=== PATIENT | female | born 1980 | race Caucasian/White ===

== ENCOUNTER 2019-09-29 13:42 | Inpatient (IN) ==
[2019-09-29] MEDS ORDERED: Naloxone 0.4 MG/ML INJ IVP PRN (17:26)
[2019-09-29] MEDS ORDERED: Ondansetron 4 MG/2 ML VIAL IVP PRN (17:26)
[2019-09-29] MEDS ORDERED: Azithromycin 500 MG in 0.9 % Sodium Chloride 250 ML IVPB ONE (17:26)
[2019-09-29] MEDS ORDERED: *HR* Nalbuphine 10 MG/ML AMPUL IVP PRN (17:26)
[2019-09-29] MEDS ORDERED: Famotidine 20 MG/2 ML VIAL IVP PRN (17:26)
[2019-09-29 18:40] LABS: Amphetamine Screen,Urine Negative ng/mL (Cutoff=1000); Barbiturate Screen,Urine Negative ng/mL (Cutoff=200); Benzodiazepines Screen,Urine Negative ng/mL (Cutoff=200); Cannabinoid Screen,Urine Negative ng/mL (Cutoff = 50); Cocaine Screen,Urine Negative ng/mL (Cutoff= 300); Creatinine,Urine 246 mg/dL; Opiate Screen,Urine Negative ng/mL (Cutoff=300); Phencyclidine Screen,Urine Negative ng/mL (Cutoff=25); Protein/Creatinine Ratio,Urine 0.16 mg/mg (0.00-0.20)
[2019-09-29 18:50] LABS: Alanine Aminotransferase 8 Units/L (7-52); Aspartate Amino Transferase 17 Units/L (13-39); BUN/Creatinine Ratio 11 (6-26); Blood Urea Nitrogen 7 mg/dL (6-20); Lactate Dehydrogenase 176 Units/L (140-271); Uric Acid 5.5 mg/dL (2.3-7.6); eGFR For African Americans > 60 (> 60); eGFR For Non-African Americans > 60 (> 60)
[2019-09-29 19:43] LABS: Basophils % 0.5 %; Eosinophils # 0.1 K/mcL (0.0-0.6); Eosinophils % 0.9 %; Hematocrit 33.1 % (35.3-44.9); Hemoglobin 10.5 g/dL (11.5-15.4); Immature Granulocytes % 0.5 % (0-4); Lymphocytes # 2.1 K/mcL (0.6-4.6); Lymphocytes % 23.8 %; Mean Corpuscular HGB Conc 31.7 g/dL (31.6-35.5); Mean Corpuscular Hemoglobin 24.5 pg (28.0-33.3); Mean Corpuscular Volume 77.2 fL (83.0-100.0); Mean Platelet Volume 10.8 fL (9.4-12.4); Monocytes # 0.8 K/mcL (0.0-1.3); Monocytes % 9.6 %; Neutrophils # 5.6 K/mcL (1.6-8.9); Platelet Count 288 K/mcL (140-400); Red Blood Count 4.29 M/mcL (3.82-4.97); Red Cell Distribution Width 14.7 % (11.5-14.5); Segmented Neutrophils % 64.7 %; White Blood Count 8.7 K/mcL (4.3-11.1)
[2019-09-29] MEDS ORDERED: Insulin LISPRO 300 UNITS/3 ML VIAL SQ SCH (20:00)
[2019-09-29] MEDS: Insulin NPH 100 UNIT/ML (x5UNIT) SQ SCH (23:02)
[2019-09-30] MEDS ORDERED: *HR* Metformin 500 MG TABLET PO SCH (08:00)
[2019-09-30] MEDS ORDERED: Aspirin 81 MG TAB.CHEW PO SCH (09:00)
[2019-09-30] MEDS ORDERED: FLUoxetine 20 MG CAPSULE PO SCH (09:00)
[2019-09-30] MEDS ORDERED: Oxytocin 20 units/ LR 1000 mL 20 UNIT/1,000 ML BAG IVC SCH (14:15)
[2019-09-30] MEDS: Ringers Solution, Lactated 1,000 ML IVC SCH ×2 (14:34→22:28)
[2019-09-30] MEDS: Insulin NPH 100 UNIT/ML (x5UNIT) SQ SCH (22:29)
[2019-10-01] MEDS ORDERED: Measles/Mumps/Rubella Vacc 0.5 ML VIAL SQ PRN (04:22)
[2019-10-01] MEDS ORDERED: Oxytocin 20 units/ LR 1000 mL 20 UNIT/1,000 ML BAG IVC SCH (04:22)
[2019-10-01] MEDS ORDERED: Acetaminophen 325 MG TABLET PO PRN (04:22)
[2019-10-01] MEDS ORDERED: Rho Immune Globulin 1,500 UNIT SYRINGE IM PRN (04:22)
[2019-10-01] MEDS: *HR* Metformin 500 MG TABLET PO SCH ×2 (08:38→16:43)
[2019-10-01] MEDS: Prenatal Vit/FA 1 EACH TABLET PO SCH (08:38)
[2019-10-01] MEDS: Ibuprofen 600 MG TABLET PO PRN (16:16)
[2019-10-02 02:59] LABS: Basophils # 0.1 K/mcL (0.0-0.2); Basophils % 0.6 %; Eosinophils # 0.1 K/mcL (0.0-0.6); Eosinophils % 1.3 %; Hemoglobin 9.2 g/dL (11.5-15.4); Immature Granulocytes % 0.7 % (0-4); Lymphocytes # 2.8 K/mcL (0.6-4.6); Lymphocytes % 29.4 %; Mean Corpuscular HGB Conc 32.9 g/dL (31.6-35.5); Mean Corpuscular Hemoglobin 24.6 pg (28.0-33.3); Mean Corpuscular Volume 74.9 fL (83.0-100.0); Mean Platelet Volume 10.7 fL (9.4-12.4); Monocytes # 1.1 K/mcL (0.0-1.3); Monocytes % 11.4 %; Neutrophils # 5.5 K/mcL (1.6-8.9); Platelet Count 264 K/mcL (140-400); Red Blood Count 3.74 M/mcL (3.82-4.97); Red Cell Distribution Width 15.3 % (11.5-14.5); Segmented Neutrophils % 56.6 %; White Blood Count 9.7 K/mcL (4.3-11.1)
[2019-10-02] MEDS: Ibuprofen 600 MG TABLET PO PRN (03:53)
[2019-10-02 07:59] VITALS: BP 121/74
[2019-10-02] MEDS: *HR* Metformin 500 MG TABLET PO SCH (08:15)
[2019-10-02] MEDS: Prenatal Vit/FA 1 EACH TABLET PO SCH (08:15)
== END 2019-10-02 11:45 | disposition home or self-care (01) | DRG 560 ==
LOC: 1NENULAB → OBSVTOIN 13:42 → 1NENUOBS 10-01 05:06
PROVIDERS: ADMIT Obstetrics & Gynecology; ATTEND Obstetrics & Gynecology